=== PATIENT | male | born 1945 | race Caucasian/White ===

== ENCOUNTER 2017-05-06 16:20 | Inpatient (IN) ==
[2017-05-06] MEDS ORDERED: Aspirin 81 MG TAB.CHEW PO ONE (16:33)
[2017-05-06] MEDS ORDERED: Nitroglycerin 0.4 MG TAB.SUBL SL ONE (16:33)
--- NOTE | 2017-05-06 16:39 | Emergency Department Note ---
START Narrative - START START: Patient presents from work for evaluation of "crushing chest pressure." He states that he was working and suddenly felt a pain in the epigastrium and then a very heavy pressure in the midsternal area. He states, "it felt like something was sitting on top of me and I was dripping with sweat." He denies history of similar and states that he has never had a heart attack. He denies trouble breathing shortness of breath or dyspnea with exertion. He has had no recent illnesses. He denies nausea, vomiting, fever, chills, syncope or dizziness. The heaviness does not radiate and nothing makes it better or worse. He patient was taken from the entrance directly to bed three for evaluation. EKG and an ER chest pain order set has been ordered.
--- NOTE | 2017-05-06 16:45 | Emergency Department Note ---
Disposition Clinical Impression: Chest pain Disposition: Admitted As Inpatient Condition: Good Referrals: Rebecca Britt MD [Primary Care Provider] - Forms: ED Satisfaction Letter Time of Disposition: 17:43 Chest Pain HPI - General Chief Complaint: ED Chest Pain Stated Complaint: CP Time Seen by Provider: 05/06/17 16:33 Source: patient Limitations: no limitations Vital Signs Reviewed: Yes Nursing Notes Reviewed: Yes - History of Present Illness HPI Narrative: 72-year-old male presenting to the emergency department for acute onset of chest pain. He stated while he was sitting down at work he had midsternal chest pain which radiated into the posterior part of his left jaw. He says he felt diaphoretic and nauseous. He almost vomited but did not vomit. He says this has never happened before. He has no cardiac history. He takes one baby aspirin a day. He took this today. Patient states pain is now 0 out of 10. He states he is feeling much better. Severity scale (1-10): 0 - Related Data Home Medications Medication Instructions Recorded Confirmed Aspirin Enteric Coated [Aspirin EC] 81 mg PO DAILY 05/06/17 05/06/17 Lisinopril [Zestril] 20 mg PO DAILY 05/06/17 05/06/17 Multivitamin [Multi-Day Vitamins] 1 each PO DAILY 05/06/17 05/06/17 Pravastatin Sodium [Pravachol] 20 mg PO HS 05/06/17 05/06/17 Allergies Allergy/AdvReac Type Severity Reaction Status Date / Time No Known Allergies Allergy Verified 05/06/17 16:40 Constitutional: Denies: fever, chills, weakness Eyes: Denies: eye discharge ENT ED: Reports: as per HPI Cardiovascular: Reports: chest pain. Denies: palpitations, dyspnea on exertion Respiratory: Denies: dyspnea, wheezes, hemoptysis Gastrointestinal: Reports: nausea. Denies: vomiting Genitourinary: Reports: as per HPI Musculoskeletal: Reports: as per HPI Integumentary: Reports: as per HPI Neurological: Reports: headache. Denies: weakness, numbness Endocrine: Reports: as per HPI Hematological/Lymphatic: Reports: as per HPI Chest Pain PMH - Past Medical History Medical history: Reports: diabetes, hyperlipidemia, hypertension Psychiatric history: Reports: no psych history - Social History Smoking Status: Former smoker Alcohol use: Reports: none Drug use: Reports: none Physical Exam - General Limitations: no limitations General appearance: alert - Eye Eye exam: Present: normal appearance - Chest Chest inspection: Present: normal inspection, symmetric chest wall rise. Absent : tenderness - Respiratory Respiratory exam: Present: normal lung sounds bilaterally. Absent: respiratory distress, wheezes - Cardiovascular Cardiovascular exam: Present: regular rate, normal rhythm - Abdominal Exam Abdominal exam: Present: soft, Non-Tender. Absent: distention, guarding, rebound - Extremities Exam Extremities exam: Present: normal inspection, full ROM - Neurological Exam Neurological exam: Present: alert, oriented X3 - Psychiatric Psychiatric exam: Present: normal affect Course Course Narrative: Patient is a 72-year-old male presenting to the emergency department for chest pain. An EKG was obtained. There are irregularities on the EKG but we have no previous EKG to compare to. A chest pain workup will be started. - Reevaluation(s) Reevaluation #1: All of the lab work has come back normal. Although the troponin is 0, the history of present illness is highly indicative of a cardiac event. We have called the hospitalist on-call. Reevaluation #2: Spoke with Avelina Kelly the nurse practitioner on for hospitalist. She agrees to accept the patient. Time: 17:41 Vital Signs Temperature 98.9 F 05/06/17 16:35 Pulse Rate 86 05/06/17 16:35 Respiratory Rate 16 05/06/17 16:35 Blood Pressure 125/97 05/06/17 16:35 O2 Sat by Pulse Oximetry 99 05/06/17 16:35 Temperature 98.9 F 05/06/17 16:35 Pulse Rate 86 05/06/17 16:35 Respiratory Rate 16 05/06/17 16:35 Blood Pressure 125/97 05/06/17 16:35 O2 Sat by Pulse Oximetry 99 05/06/17 16:41 Oxygen Delivery Oxygen Delivery Room Air Chest Pain - Medical Records Medical records reviewed: Yes I reviewed the patient's medical records. - Lab Data Lab results reviewed: Yes I reviewed the patient's lab results. Result diagrams: 05/06/17 16:51 05/06/17 16:51 Lab Results 05/06/17 05/06/17 05/06/17 Range/Units 16:51 16:51 16:51 WBC 9.9 (4.3-11.1) K/mcL RBC 4.65 (4.19-5.50) M/mcL Hgb 14.4 (12.9-16.9) g/dL Hct 42.6 (37.5-50.1) % MCV 91.6 (83.0-100.0) fL MCH 31.0 (28.0-33.3) pg MCHC 33.8 (31.6-35.5) g/dL RDW 12.5 (11.5-14.5) % Plt Count 178 (140-400) K/mcL MPV 10.2 (9.4-12.4) fL Immature Gran % 0.1 (0-4) % Seg Neutrophils % 80.2 % Lymphocytes % 10.2 % Monocytes % 7.4 % Eosinophils % 1.7 % Basophils % 0.4 % Neutrophils # 7.9 (1.6-8.9) K/mcL Lymphocytes # 1.0 (0.6-4.6) K/mcL Monocytes # 0.7 (0.0-1.3) K/mcL Eosinophils # 0.2 (0.0-0.6) K/mcL Basophils # 0.0 (0.0-0.2) K/mcL PT 12.6 H (9.4-12.1) Seconds INR 1.2 APTT 31.2 (26.0-36.0) Seconds Sodium (136-145) mEq/L Potassium (3.5-4.5) mEq/L Chloride (98-109) mEq/L Carbon Dioxide (19-29) mEq/L BUN (8-26) mg/dL Creatinine (0.72-1.25) mg/dL Est GFR ( Amer) (> 60) Est GFR (Non-Af Amer) (> 60) BUN/Creatinine Ratio (6-26) Glucose (70-99) mg/dL Calculated Osmolality (280-300) Calcium (8.6-10.8) mg/dL Troponin I (0-0.03) ng/mL B-Natriuretic Peptide 158 H (0-100) pg/mL 05/06/17 05/06/17 Range/Units 16:51 16:51 WBC (4.3-11.1) K/mcL RBC (4.19-5.50) M/mcL Hgb (12.9-16.9) g/dL Hct (37.5-50.1) % MCV (83.0-100.0) fL MCH (28.0-33.3) pg MCHC (31.6-35.5) g/dL RDW (11.5-14.5) % Plt Count (140-400) K/mcL MPV (9.4-12.4) fL Immature Gran % (0-4) % Seg Neutrophils % % Lymphocytes % % Monocytes % % Eosinophils % % Basophils % % Neutrophils # (1.6-8.9) K/mcL Lymphocytes # (0.6-4.6) K/mcL Monocytes # (0.0-1.3) K/mcL Eosinophils # (0.0-0.6) K/mcL Basophils # (0.0-0.2) K/mcL PT (9.4-12.1) Seconds INR APTT (26.0-36.0) Seconds Sodium 142 (136-145) mEq/L Potassium 3.7 (3.5-4.5) mEq/L Chloride 109 (98-109) mEq/L Carbon Dioxide 25 (19-29) mEq/L BUN 19 (8-26) mg/dL Creatinine 0.88 (0.72-1.25) mg/dL Est GFR ( Amer) > 60 (> 60) Est GFR (Non-Af Amer) > 60 (> 60) BUN/Creatinine Ratio 22 (6-26) Glucose 106 H (70-99) mg/dL Calculated Osmolality 297 (280-300) Calcium 9.0 (8.6-10.8) mg/dL Troponin I 0.01 (0-0.03) ng/mL B-Natriuretic Peptide (0-100) pg/mL - EKG Data EKG results narrative: Rate of 91 bpm. Sinus rhythm. Normal axis. DE interval of 202 ms, QRS of 131 ms, QTC of 419 ms. There are nonspecific T-wave changes in the lateral leads. Attestation Statement - Attestation Attestation: I examined this patient and my medical decision-making was reviewed with the BEVELING MACHINE OPERATOR/PA/Advanced Practice Nurse/Resident Physician. I agree with the documented findings, disposition and treatment plan as described except to the extent set forth below. Patient will need to be admitted for rule out ACS.
[2017-05-06 17:00] LABS: Basophils % 0.4 %; Eosinophils # 0.2 K/mcL (0.0-0.6); Eosinophils % 1.7 %; Hematocrit 42.6 % (37.5-50.1); Hemoglobin 14.4 g/dL (12.9-16.9); Immature Granulocytes % 0.1 % (0-4); Lymphocytes % 10.2 %; Mean Corpuscular HGB Conc 33.8 g/dL (31.6-35.5); Mean Corpuscular Volume 91.6 fL (83.0-100.0); Mean Platelet Volume 10.2 fL (9.4-12.4); Monocytes # 0.7 K/mcL (0.0-1.3); Monocytes % 7.4 %; Neutrophils # 7.9 K/mcL (1.6-8.9); Platelet Count 178 K/mcL (140-400); Red Blood Count 4.65 M/mcL (4.19-5.50); Red Cell Distribution Width 12.5 % (11.5-14.5); Segmented Neutrophils % 80.2 %
[2017-05-06 17:11] LABS: BUN/Creatinine Ratio 22 (6-26); Blood Urea Nitrogen 19 mg/dL (8-26); Carbon Dioxide 25 mEq/L (19-29); Chloride 109 mEq/L (98-109); Glucose 106 mg/dL (70-99); Osmolality,Calculated 297 (280-300); Potassium 3.7 mEq/L (3.5-4.5); Sodium 142 mEq/L (136-145); eGFR For African Americans > 60 (> 60); eGFR For Non-African Americans > 60 (> 60)
[2017-05-06 17:12] LABS: INR 1.2; Prothrombin Time 12.6 Seconds (9.4-12.1)
[2017-05-06 17:15] LABS: Activated Partial Thrombo Time 31.2 Seconds (26.0-36.0)
[2017-05-06] MEDS ORDERED: Naloxone 0.4 MG/ML INJ IVP PRN (20:07)
[2017-05-06] MEDS ORDERED: Acetaminophen 325 MG TABLET PO PRN (20:07)
[2017-05-06] MEDS ORDERED: *HR* Morphine 2 MG/ML SYRINGE IVP PRN (20:07)
[2017-05-06] MEDS ORDERED: Ondansetron 4 MG/2 ML VIAL IVP PRN (20:07)
--- NOTE | 2017-05-06 20:16 | Internal Med History&Physical ---
Date of Encounter: 05/06/17 Time of Encounter: 19:45 Assessment and Plan (1) Chest pain Current visit: Yes Status: Acute 1. Will cycle troponins and EKG's. 2. Plan for stress test with nuclear imaging tomorrow if above negative. 3. Will use IV Morphine and/or nitrates as needed for active chest pain. Qualifiers: Chest pain type: precordial pain Qualified Code(s): R07.2 - Precordial pain (2) Hypertension Current visit: Yes Status: Chronic 1. Monitor BP and adjust meds as necessary. 2. Continue home meds as appropriate. Qualifiers: Hypertension type: essential hypertension Qualified Code(s): I10 - Essential (primary) hypertension (3) Hyperlipidemia Current visit: Yes Status: Chronic 1. Check lipid profile and continue home meds. Qualifiers: Hyperlipidemia type: unspecified Qualified Code(s): E78.5 - Hyperlipidemia , unspecified (4) DVT prophylaxis Current visit: Yes Status: Acute 1. Heparin SQ. Internal Medicine - H&P: HPI Chief complaint: chest pain Admitted From: Emergency Dept History of present illness: Mr. Stark is a 72 year old male who presents to the ER [facility] with complaints of acute onset of epigastric and substernal chest pain with sudden onset while walking at work. He sat down at his desk and the pain persisted for several minutes. It was associated with some shortness of breath, diaphoresis, and felt like "an elephant sitting on my chest". He therefore came to the ER where he was seen and evaluated. He received an aspirin and some sublingual nitroglycerin with relief of symptoms. He therefore was admitted to hospitalist service for evaluation. Upon my assessment of the patient, he is chest pain-free now. He has had some atypical cramping pain in his left abdomen radiating to his chest. This all started today as well. The chest pain was rather concerning, however. He denies any heartburn, nausea, vomiting, diarrhea, constipation, or change in bowel habits. He is an active individual and has never had chest pain before. Cardiac risk factors include hypertension, hyperlipidemia, obesity, and family history. Past Med Surg Social Fam HX - Past Medical History Attestation: Yes The following information was validated with the patient. Source: patient, old records reviewed Medical history: hyperlipidemia, hypertension Psychiatric history: no psych history - Past Surgical History Surgical History: cholecystectomy, orthopedic, other - Social History Smoking Status: Former smoker Smokeless Tobacco Status: No Alcohol use: none Drug use: none Occupational status: employed Current living situation: Home, With Family Activity Level: Independent ambulation, Very active Recent Out of Country Travel Within the Last 8 Weeks: No - Family History Mother Living Status: Hx Family Cardiac Disorders: Yes Father Living Status: Hx Family Cardiac Disorders: No Internal Medicine - H&P: Meds Aspirin Enteric Coated [Aspirin EC] 81 mg PO DAILY 05/06/17 [History] Lisinopril [Zestril] 20 mg PO DAILY 05/06/17 [History] Multivitamin [Multi-Day Vitamins] 1 each PO DAILY 05/06/17 [History] Pravastatin Sodium [Pravachol] 20 mg PO HS 05/06/17 [History] Allergies No Known Allergies Allergy (Verified 05/06/17 16:40) - Constitutional Constitutional: no chills, no fever(s), no night sweats - EENT Eyes: no blurry vision, no change in vision Ears: no ear pain, no tinnitus Nose, mouth and throat: no nasal congestion, no sinus pain, no sore throat - Cardiovascular Cardiovascular ROS IM: chest pain, diaphoresis, dyspnea, dyspnea on exertion, no edema, no lightheadedness, no palpitations - Respiratory Respiratory: no cough, no hemoptysis, no wheezing, no chest congestion - Gastrointestinal Gastrointestinal: abdominal pain, cramping, no diarrhea, no dyspepsia, no heartburn, no hematemesis, no hematochezia, no melena, no nausea, no vomiting - Genitourinary Genitourinary ROS male: no dysuria, no flank pain, no hematuria - Musculoskeletal Musculoskeletal ROS IM: no arthralgias, no back pain - Integumentary Integumentary IM: no rash, no skin ulcer - Neurological Neurological ROS: no dizziness, no focal weakness, no frequent falls - Psychiatric Psychiatric: no anxiety, no depression - Endocrine Endocrine IM: no cold intolerance, no heat intolerance, no polydipsia, no polyuria - Hematologic/Lymphatic Hematologic/Lymphatic: no easy bruising, no lymphadenopathy - Allergic/Immunologic Allergic/Immunologic: no GI upset with certain foods - Constitutional Vitals: Temp Pulse Resp BP Pulse Ox 98.2 F 80 16 177/84 98 05/06/17 19:34 05/06/17 19:34 05/06/17 19:34 05/06/17 19:34 05/06/17 19:34 General appearance: Present: cooperative, A&O X 3, pleasant, no acute distress - Head Head exam: Present: atraumatic, normal inspection - Eye Eye exam: Present: EOMI, normal appearance, PERRL. Absent: scleral icterus Pupils: Present: normal accommodation - ENT ENT exam: Present: mucous membranes moist, normal exam - Neck Neck exam general surgery: Present: full ROM, normal inspection, supple. Absent : tenderness - Expanded Neck Exam Neck exam: Absent: carotid bruit - Respiratory Respiratory exam: Present: CTAB. Absent: chest wall tenderness, rales, rhonchi , wheezes - Cardiovascular Cardiovascular exam: Present: RRR, +S1, +S2. Absent: diastolic murmur, systolic murmur - GI/Abdominal GI/Abdominal exam: Present: normal bowel sounds, soft, no peritoneal signs. Absent: guarding, hepatomegaly, mass, rebound, splenomegaly, tenderness - Extremities Exam Extremities exam: Present: full ROM, warm. Absent: calf tenderness, joint swelling, pedal edema, tenderness - Back Exam Back exam: Present: normal inspection. Absent: CVA tenderness (L), CVA tenderness (R) - Neurological Exam Neurological exam: Present: alert, CN II-XII intact, oriented X3, no focal deficits - Psychiatric Psychiatric exam: Present: normal affect, normal mood - Skin Skin exam: Present: dry, warm. Absent: rash Internal Med - H&P Results - Labs CBC & Chem 7: 05/06/17 16:51 05/06/17 16:51 - EKG Data -: EKG Interpreted by Myself EKG shows normal: sinus rhythm - EKG Data Prior EKG available for review: no EKG comments: 05/06/17 20:25 NSR; RBBB; no acute changes - Diagnostic Studies Chest x-ray Status: image reviewed by me (negative)
[2017-05-06] MEDS: *HR* Heparin 5,000 UNIT/ML VIAL SQ SCH (21:15)
[2017-05-07 05:12] LABS: Basophils % 0.5 %; Eosinophils # 0.1 K/mcL (0.0-0.6); Eosinophils % 1.5 %; Hematocrit 44.6 % (37.5-50.1); Hemoglobin 14.8 g/dL (12.9-16.9); Immature Granulocytes % 0.3 % (0-4); Lymphocytes # 0.8 K/mcL (0.6-4.6); Lymphocytes % 8.5 %; Mean Corpuscular HGB Conc 33.2 g/dL (31.6-35.5); Mean Corpuscular Hemoglobin 30.8 pg (28.0-33.3); Mean Corpuscular Volume 92.7 fL (83.0-100.0); Mean Platelet Volume 10.4 fL (9.4-12.4); Monocytes # 0.6 K/mcL (0.0-1.3); Monocytes % 6.8 %; Neutrophils # 7.2 K/mcL (1.6-8.9); Platelet Count 190 K/mcL (140-400); Red Blood Count 4.81 M/mcL (4.19-5.50); Red Cell Distribution Width 12.8 % (11.5-14.5); Segmented Neutrophils % 82.4 %
[2017-05-07 05:32] LABS: Alanine Aminotransferase 19 Units/L (0-55); Albumin 3.6 g/dL (3.5-5.0); Albumin/Globulin Ratio 1.2 (1.1-2.2); Alkaline Phosphatase 85 Units/L (38-126); Aspartate Amino Transferase 22 Units/L (5-34); BUN/Creatinine Ratio 21 (6-26); Bilirubin,Total 0.7 mg/dL (0.2-1.2); Blood Urea Nitrogen 17 mg/dL (8-26); Calcium 8.7 mg/dL (8.6-10.8); Carbon Dioxide 28 mEq/L (19-29); Chloride 108 mEq/L (98-109); Chol/HDL Ratio 4.6 (0-4.9); Cholesterol 129 mg/dL (< 200); Globulin 2.9 g/dL (2.4-3.5); Glucose 107 mg/dL (70-99); HDL Cholesterol 28 mg/dL (40-59); LDL Cholesterol,Calculated 75 mg/dL (0-99); Magnesium 1.9 mg/dL (1.6-2.6); Osmolality,Calculated 292 (280-300); Sodium 140 mEq/L (136-145); Total Protein 6.5 g/dL (6.0-8.3); Triglycerides 128 mg/dL (< 150); eGFR For African Americans > 60 (> 60); eGFR For Non-African Americans > 60 (> 60)
[2017-05-07] MEDS: *HR* Heparin 5,000 UNIT/ML VIAL SQ SCH ×2 (06:06→17:04)
[2017-05-07] MEDS ORDERED: Regadenoson 0.4 MG/5 ML SYRINGE IVP ONE (07:33)
[2017-05-07] MEDS ORDERED: Lisinopril 20 MG TABLET PO SCH (09:00)
[2017-05-07] MEDS: Aspirin Enteric Coated 81 MG Tablet PO SCH (09:05)
[2017-05-07] MEDS: Multivit/Ca/Min/Fe/FA 1 TAB TABLET PO SCH (09:05)
--- NOTE | 2017-05-07 11:26 | Nuclear Medicine Stress Report ---
Regadenoson Nuclear Stress Name: Abhishek Stark Date of Study: 05/07/2017 Date: 1945 Ht: 69.0 in Medical Record#: [id number] Age: 72 Wt: 245.0 lb Gender: Male Order #: [id number] Location: [facility] Room: [facility] Supervising Provider: China Powell CNP Reading Physician: Brandon Ramírez DO, FACC, FASEMY Ordering Physician: Carmina Lawson CNP Primary Care Physician: Rebecca Britt MD Stress Technologist: Ivan Johnson [employer] Scale Tester: Herlinda Shore Indications: Chest Pain Impression: Pharmacologic stress ECG is negative for ischemia at level of heart rate achieved. Gated EF = 69%. Perfusion imaging was negative for ischemia or infarct. History: Hypertension Hypercholesteremia Stress Test Summary: Stress Test Type: Pharmacologic Regadenoson 0.4mg/5ml given IV Baseline Information: Initial Heart Rate: 81 Blood Pressure: 136/68 Stress Information: Test Terminated Due to (primary): As per protocol Maximum Blood Pressure: 128/64 Maximum Heart Rate: 96 Percent Maximum Heart Rate Achieved: 65 Double Product: [id number] METS Reached: 1 Symptoms: No chest symptoms Nuclear Summary: SPECT myocardial perfusion imaging using Tc99m Sestamibi given intravenously was performed at rest and following cardiac stress testing. The resting images were obtained following initial dose of 11.5 mCi. Following stress an additional dose of 30.4 mCi was given at peak exercise or 30 seconds post regadenoson infusion. Medication Given: Time Medication Dose Units Route Findings: Stress Note * Resting ECG demonstrated normal sinus rhythm. * No baseline arrhythmias were noted. * Pharmacologic stress ECG is negative for ischemia at level of heart rate achieved. * No arrhythmias were noted during stress. * Patient had no chest pain during stress. Hemodynamic responses * Normal hemodynamic responses to pharmacologic stress. Study Quality * Study quality is good. Gated EF % * Gated EF = 69%. Left Ventricle * The left ventricle is not dilated. * LVEDV = 100 mL. NORMALS * Normal wall motion. * Normal Segmental Perfusion in rest. * Normal segmental perfusion in stress. TID * No evidence of transient ischemic dilatation. TID ratio * TID ratio = 1.11. Lung Uptake * There is no evidence of increase lung uptake. Updated by Brandon Ramírez DO, RAMYA, ADAN, SANJU on 05/07/2017 11:19:42 AM electronically signed on 05/07/2017 11:20:03 AM with status of Final
--- NOTE | 2017-05-07 17:18 | Electrocardiograph Report ---
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
--- NOTE | 2017-05-07 18:06 | Internal Med Progress Note ---
Date of Encounter: 05/07/17 Time of Encounter: 16:30 - Assessment and plan (1) Chest pain Current Visit: Yes Status: Ruled-out Assessment and plan: In further discussion with the patient, patient never had overt chest pain. He did have epigastric pain and acute coronary syndrome was ruled out with a negative chest x-ray, negative troponins, and a negative stress test. Ejection fraction 69%. Low suspicion for acute cardiac etiology. We will investigate abdominal pathway. ITS Impressions Chest X-Ray 05/06/17 16:33 IMPRESSION: No evidence of acute cardiopulmonary disease. D/ / Lonnie Mac MD / Lonnie Mac MD Interpreting Provider: Lonnie Mac MD Regadenosen nuclear stress test impression: Pharmacologic stress ECG is negative for ischemia at level heart rate achieved. Gait ejection fraction equals 69%. Perfusion imaging was negative for ischemia or infarct. Qualifiers: Chest pain type: precordial pain Qualified Code(s): R07.2 - Precordial pain (2) Abdominal pain Current Visit: Yes Status: Acute Assessment and plan: Patient stating he has been having severe abdominal pain that has gotten more frequent and more severe over the past month but has really gotten bad over the past couple days. He endorses severe epigastric pain that feels as if somebody is stabbing him. He also endorses severe shooting pains across his stomach. He denies any relationship to food. He denies constipation or diarrhea. LFTs and bilirubin normal. He is status post cholecystectomy. Unclear causation at this point, will obtain abdominal imaging and investigate further. (3) Hypertension Current Visit: Yes Status: Chronic Assessment and plan: Uncontrolled. Could be due to the fact that the patient is still having abdominal pain. At home, he is on lisinopril 20 mg daily. Renal functioning is normal, will increase dose and monitor. Heart rate stable, Lopressor IV as needed Qualifiers: Hypertension type: essential hypertension Qualified Code(s): I10 - Essential (primary) hypertension (4) Hyperlipidemia Current Visit: Yes Status: Chronic Assessment and plan: The patient unremarkable but LDL is above 70, slightly, he is on a statin, continue. Still recommend low-cholesterol diet. Qualifiers: Hyperlipidemia type: unspecified Qualified Code(s): E78.5 - Hyperlipidemia , unspecified (5) DVT prophylaxis Current Visit: Yes Status: Acute Assessment and plan: Subcutaneous heparin - Subjective Interval history: Patient seen and examined. On examination, patient alert and oriented 3. He denies chest pain or shortness of breath. He continues to endorse intermittent severe epigastric abdominal pain as well as shooting pains across his abdomen that he states have occurred over the past year but if gotten more frequent and more severe over the past couple days. He is very concerned about his abdominal pain. - Constitutional Vitals: Temp Pulse Resp BP Pulse Ox 98.7 F 89 15 177/84 96 05/07/17 15:30 05/07/17 15:30 05/07/17 15:30 05/07/17 15:30 05/07/17 15:30 General appearance: Present: cooperative, A&O X 3, pleasant, no acute distress, answers questions appropriately - Head Head exam: Present: atraumatic, normocephalic - Eye Eye exam: Present: PERRL, conjuntiva pink, sclera anicteric Pupils: Present: PERRL - Neck Neck exam general surgery: Present: supple, trachea midline. Absent: lymphadenopathy - Respiratory Respiratory exam: Present: CTAB. Absent: accessory muscle use, rales, respiratory distress, rhonchi, wheezes - Cardiovascular Cardiovascular exam: Present: RRR, +S1, +S2. Absent: diastolic murmur, gallop, rubs, systolic murmur - GI/Abdominal GI/Abdominal exam: Present: distended, normal bowel sounds, soft, tenderness ( epitgastric and diffuse), no peritoneal signs - Extremities Exam Extremities exam: Present: warm, radial pulses palpable and symetrical. Absent : calf tenderness, cyanotic, pedal edema - Neurological Exam Neurological exam: Present: alert, CN II-XII intact, normal gait, oriented X3, no focal deficits, strengths equal and symetr throughout. Absent: pronater drift, facial droop, speech deficit - Skin Skin exam: Present: dry, intact, pallor, warm Internal Medicine: Result - Labs CBC & Chem 7: 05/07/17 04:52 05/07/17 04:52 Labs: Short CBC 05/07/17 Range/Units 04:52 WBC 8.8 (4.3-11.1) K/mcL Hgb 14.8 (12.9-16.9) g/dL Hct 44.6 (37.5-50.1) % Plt Count 190 (140-400) K/mcL Neutrophils # 7.2 (1.6-8.9) K/mcL BMP 05/07/17 04:52 Sodium 140 Potassium 4.0 Chloride 108 Carbon Dioxide 28 BUN 17 Creatinine 0.82 Glucose 107 H Calcium 8.7 Cardiac Enzymes 05/06/17 05/07/17 Range/Units 22:35 04:52 Troponin I 0.00 0.00 (0-0.03) ng/mL Liver Function 05/07/17 Range/Units 04:52 Total Bilirubin 0.7 (0.2-1.2) mg/dL AST 22 (5-34) Units/L ALT 19 (0-55) Units/L Alkaline Phosphatase 85 (38-126) Units/L Albumin 3.6 (3.5-5.0) g/dL - ABG Interpretation ABG results: PT/INR, D-dimer PT 12.6 Seconds (9.4-12.1) H 05/06/17 16:51 Consult Discharge Plan - Plan Referrals: Rebecca Britt MD [Primary Care Provider] - 05/11/17 1:30 pm
[2017-05-07] MEDS ORDERED: *HR* HYDROcodone/Acet 5/325 mg TABLET PO PRN (18:07)
[2017-05-07] MEDS ORDERED: Lisinopril 20 MG TABLET PO ONE (18:07)
[2017-05-07] MEDS ORDERED: *HR* Morphine 2 MG/ML SYRINGE IVP PRN (18:15)
[2017-05-07] MEDS ORDERED: Ondansetron 4 MG/2 ML VIAL IVP PRN (18:15)
[2017-05-08] MEDS: *HR* Heparin 5,000 UNIT/ML VIAL SQ SCH ×2 (05:46→18:02)
[2017-05-08 06:47] LABS: Amylase 22 Units/L (25-125); BUN/Creatinine Ratio 18 (6-26); Blood Urea Nitrogen 14 mg/dL (8-26); Calcium 8.9 mg/dL (8.6-10.8); Carbon Dioxide 26 mEq/L (19-29); Chloride 106 mEq/L (98-109); Glucose 114 mg/dL (70-99); Lipase 16 Units/L (8-78); Osmolality,Calculated 287 (280-300); Potassium 3.9 mEq/L (3.5-4.5); Sodium 138 mEq/L (136-145); eGFR For African Americans > 60 (> 60); eGFR For Non-African Americans > 60 (> 60)
[2017-05-08] MEDS: Aspirin Enteric Coated 81 MG Tablet PO SCH (09:13)
[2017-05-08] MEDS: Lisinopril 20 MG TABLET PO SCH (09:13)
[2017-05-08] MEDS: Multivit/Ca/Min/Fe/FA 1 TAB TABLET PO SCH (09:13)
[2017-05-08 11:10] LABS: Basophils % 0.3 %; Eosinophils # 0.1 K/mcL (0.0-0.6); Hematocrit 44.8 % (37.5-50.1); Hemoglobin 15.2 g/dL (12.9-16.9); Immature Granulocytes % 0.3 % (0-4); Lymphocytes # 1.1 K/mcL (0.6-4.6); Lymphocytes % 11.7 %; Mean Corpuscular HGB Conc 33.9 g/dL (31.6-35.5); Mean Corpuscular Hemoglobin 31.6 pg (28.0-33.3); Mean Corpuscular Volume 93.1 fL (83.0-100.0); Mean Platelet Volume 10.6 fL (9.4-12.4); Monocytes # 1.1 K/mcL (0.0-1.3); Monocytes % 11.8 %; Neutrophils # 7.1 K/mcL (1.6-8.9); Platelet Count 170 K/mcL (140-400); Red Blood Count 4.81 M/mcL (4.19-5.50); Segmented Neutrophils % 74.9 %
[2017-05-08] MEDS: 0.9 % Sodium Chloride 1,000 ML IVC SCH ×2 (12:10→21:56)
[2017-05-08] MEDS: MetroNIDAZOLE 500 MG/100 ML 500 MG/100 ML BAG IVPB SCH ×3 (12:10→21:56)
--- NOTE | 2017-05-08 13:41 | Internal Med Progress Note ---
Date of Encounter: 05/09/17 Time of Encounter: 12:30 - Assessment and plan (1) Chest pain Current Visit: Yes Status: Ruled-out Assessment and plan: In further discussion with the patient, patient never had overt chest pain. He did have epigastric pain and acute coronary syndrome was ruled out with a negative chest x-ray, negative troponins, and a negative stress test. Ejection fraction 69%. Low suspicion for acute cardiac etiology. Abdominal pathway investigated and patient with suspected mesenteric enteritis. ITS Impressions Chest X-Ray 05/06/17 16:33 IMPRESSION: No evidence of acute cardiopulmonary disease. D/ / Lonnie Mac MD / Lonnie Mac MD Interpreting Provider: Lonnie Mac MD Regadenosen nuclear stress test impression: Pharmacologic stress ECG is negative for ischemia at level heart rate achieved. Gait ejection fraction equals 69%. Perfusion imaging was negative for ischemia or infarct. Qualifiers: Chest pain type: precordial pain Qualified Code(s): R07.2 - Precordial pain (2) Abdominal pain Current Visit: Yes Status: Acute Assessment and plan: Abdominal CT revealing mesenteric edema with suspected mesenteric enteritis. Possible SBO as well. Patient stating his pain is controlled today and states that he just had a bowel movement that he stated was normal. He states that over the past month, he has been having sharp, shooting pains across his abdomen and he states these pains were intolerable in the days leading up to his presentation. On examination, abdomen is distended and firm but with + bowel sounds in all four quadrants. He is diffusely tender to palpation. He denies any changes to his bowel movements over the past month. No recent illnesses. He has been made NPO, an NG tube has been placed and IVF and Cipro and Flagyl have been initiated. Concern for SBO. Will recheck acute abdominal series in the am. Possible small bowel follow through tomorrow as well pending clinical outcomes. Unclear causation at this time. No leukocytosis or signs of infection. We will check stool for Hemoccult. LDH normal, lactic acid normal. Amylase and lipase unremarkable. He does not have any signs of ischemia at this time, we will monitor closely. ITS Impressions Abdomen/Pelvis CT 05/07/17 18:13 IMPRESSION: Fluid distention of multiple small bowel loops throughout the abdomen with increased vascularity and associated small amount of fluid and mesenteric edema. Findings could represent enteritis. Small bowel obstruction cannot be excluded. D/ / Stephanie Newton Cha, MD / Stephanie Newton Cha, MD Interpreting Provider: Stephanie Newton Cha, MD Qualifiers: Abdominal location: generalized Qualified Code(s): R10.84 - Generalized abdominal pain (3) Enteritis Current Visit: Yes Status: Suspected (4) Hypertension Current Visit: Yes Status: Chronic Assessment and plan: Uncontrolled even with increase in lisinopril and now that his pain is controlled. Amlodipine added to his regimen; will trend. Heart rate stable, Lopressor IV as needed Qualifiers: Hypertension type: essential hypertension Qualified Code(s): I10 - Essential (primary) hypertension (5) Hyperlipidemia Current Visit: Yes Status: Chronic Assessment and plan: The patient unremarkable but LDL is above 70, slightly, he is on a statin, continue. Still recommend low-cholesterol diet. Qualifiers: Hyperlipidemia type: unspecified Qualified Code(s): E78.5 - Hyperlipidemia , unspecified (6) DVT prophylaxis Current Visit: Yes Status: Acute Assessment and plan: Subcutaneous heparin - Subjective Interval history: Patient seen and examined. On examination, patient alert and oriented 3. He denies chest pain or shortness of breath. He states that he just had a bowel movement and stated it was "normal." He states he is hungry but denies other concerns. - Constitutional Vitals: Temp Pulse Resp BP Pulse Ox 98.8 F 79 14 181/92 96 05/08/17 11:10 05/08/17 11:10 05/08/17 11:10 05/08/17 11:10 05/08/17 11:10 General appearance: Present: cooperative, A&O X 3, pleasant, no acute distress, answers questions appropriately - Head Head exam: Present: atraumatic, normocephalic - Eye Eye exam: Present: PERRL, conjuntiva pink, sclera anicteric Pupils: Present: PERRL - Neck Neck exam general surgery: Present: supple, trachea midline. Absent: lymphadenopathy - Respiratory Respiratory exam: Present: CTAB. Absent: accessory muscle use, rales, respiratory distress, rhonchi, wheezes - Cardiovascular Cardiovascular exam: Present: RRR, +S1, +S2. Absent: diastolic murmur, gallop, rubs, systolic murmur - GI/Abdominal GI/Abdominal exam: Present: distended, hyperactive bowel sounds, tenderness ( diffuse; mild), no peritoneal signs - Extremities Exam Extremities exam: Present: warm, radial pulses palpable and symetrical. Absent : calf tenderness, cyanotic, pedal edema - Neurological Exam Neurological exam: Present: alert, CN II-XII intact, normal gait, oriented X3, no focal deficits, strengths equal and symetr throughout. Absent: pronater drift, facial droop, speech deficit - Skin Skin exam: Present: dry, intact, normal color, warm Internal Medicine: Result - Labs CBC & Chem 7: 05/08/17 11:01 05/08/17 05:21 Labs: Short CBC 05/08/17 Range/Units 11:01 WBC 9.5 (4.3-11.1) K/mcL Hgb 15.2 (12.9-16.9) g/dL Hct 44.8 (37.5-50.1) % Plt Count 170 (140-400) K/mcL Neutrophils # 7.1 (1.6-8.9) K/mcL BMP 05/08/17 05:21 Sodium 138 Potassium 3.9 Chloride 106 Carbon Dioxide 26 BUN 14 Creatinine 0.77 Glucose 114 H Calcium 8.9 - ABG Interpretation ABG results: PT/INR, D-dimer PT 12.6 Seconds (9.4-12.1) H 05/06/17 16:51 - Impressions Impressions Abdomen/Pelvis CT 05/07/17 18:13 IMPRESSION: Fluid distention of multiple small bowel loops throughout the abdomen with increased vascularity and associated small amount of fluid and mesenteric edema. Findings could represent enteritis. Small bowel obstruction cannot be excluded. D/ / Stephanie Newton Cha, MD / Stephanie Newton Cha, MD Interpreting Provider: Stephanie Newton Cha, MD Consult Discharge Plan - Plan Referrals: Rebecca Britt MD [Primary Care Provider] - 05/11/17 1:30 pm
[2017-05-08] MEDS: amLODIPine 5 MG TABLET PO SCH (15:33)
[2017-05-09] MEDS: 0.9 % Sodium Chloride 1,000 ML IVC SCH ×2 (04:22→17:30)
[2017-05-09] MEDS: MetroNIDAZOLE 500 MG/100 ML 500 MG/100 ML BAG IVPB SCH ×4 (05:22→22:56)
[2017-05-09] MEDS: *HR* Heparin 5,000 UNIT/ML VIAL SQ SCH ×2 (05:22→18:28)
[2017-05-09 05:53] LABS: Thyroid Stimulating Hormone 2.292 mcIU/mL (0.350-4.840)
[2017-05-09] MEDS: Aspirin Enteric Coated 81 MG Tablet PO SCH (07:38)
[2017-05-09] MEDS: Multivit/Ca/Min/Fe/FA 1 TAB TABLET PO SCH (07:38)
[2017-05-09] MEDS: Lisinopril 20 MG TABLET PO SCH (07:38)
[2017-05-09] MEDS: amLODIPine 5 MG TABLET PO SCH (07:39)
[2017-05-09] MEDS ORDERED: Chloraseptic Spray 177 ML BOTTLE MM PRN (15:13)
--- NOTE | 2017-05-09 16:18 | Internal Med Progress Note ---
Date of Encounter: 05/09/17 Time of Encounter: 14:30 - Assessment and plan (1) Abdominal pain Current Visit: Yes Status: Acute Assessment and plan: Abdominal CT revealing mesenteric edema with suspected mesenteric enteritis with a possible SBO. Yesterday, he was made NPO and started on Cipro and Flagyl. He had a sizeable bowel movement yesterday and his abdomen was less distended, softer, and he then denied abdominal pain. NG tube was held at that time and he was observed overnight. Unfortunately, repeat imaging this am revealing continued small bowel distention with suspected SBO to the mid abdomen. NG tube placed today. He continues to deny pain. Unclear causation at this time- he has had shooting pains across his abdomen for a month, but progressively worsened in the 2 days prior to presentation. No leukocytosis or signs of infection. We will check stool for Hemoccult. LDH normal, lactic acid normal. Amylase and lipase unremarkable. He does not have any signs of ischemic bowel at this time, we will monitor closely. Will continue to treat conservatively- repeat AAS in the am- if abnormal, will consider surgery consultation. Possible small bowel follow through testing as well. ITS Impressions Abdomen/Pelvis CT 05/07/17 18:13 IMPRESSION: Fluid distention of multiple small bowel loops throughout the abdomen with increased vascularity and associated small amount of fluid and mesenteric edema. Findings could represent enteritis. Small bowel obstruction cannot be excluded. D/ / Stephanie Newton Cha, MD / Stephanie Newton Cha, MD Interpreting Provider: Stephanie Newton Cha, MD Chest/Abdomen X-ray 05/09/17 06:00 IMPRESSION: Persistent small bowel distention within the mid abdomen concerning for a partial small bowel obstruction. No acute cardiopulmonary process identified. D/ / 05/09/2017 08:38:26 Beto Flores MD / otis Interpreting Provider: Beto Flores MD Qualifiers: Abdominal location: generalized Qualified Code(s): R10.84 - Generalized abdominal pain (2) SBO (small bowel obstruction) Current Visit: Yes Status: Acute (3) Chest pain Current Visit: Yes Status: Ruled-out Assessment and plan: In further discussion with the patient, patient never had overt chest pain. He did have epigastric pain and acute coronary syndrome was ruled out with a negative chest x-ray, negative troponins, and a negative stress test. Ejection fraction 69%. Low suspicion for acute cardiac etiology. Abdominal pathway investigated and patient with suspected mesenteric enteritis. ITS Impressions Chest X-Ray 05/06/17 16:33 IMPRESSION: No evidence of acute cardiopulmonary disease. D/ / Lonnie Mac MD / Lonnie Mac MD Interpreting Provider: Lonnie Mac MD Regadenosen nuclear stress test impression: Pharmacologic stress ECG is negative for ischemia at level heart rate achieved. Gait ejection fraction equals 69%. Perfusion imaging was negative for ischemia or infarct. Qualifiers: Chest pain type: precordial pain Qualified Code(s): R07.2 - Precordial pain (4) Enteritis Current Visit: Yes Status: Suspected (5) Hypertension Current Visit: Yes Status: Chronic Assessment and plan: Uncontrolled upon presentation. His lisinopril was increased but he remained hypertensive even after his pain was controlled. Amlodipine was also added to his regimen and his blood pressure is better controlled today, we will continue to trend. Heart rate stable, Lopressor IV as needed Qualifiers: Hypertension type: essential hypertension Qualified Code(s): I10 - Essential (primary) hypertension (6) Hyperlipidemia Current Visit: Yes Status: Chronic Assessment and plan: The patient unremarkable but LDL is above 70, slightly, he is on a statin, continue. Still recommend low-cholesterol diet. Qualifiers: Hyperlipidemia type: unspecified Qualified Code(s): E78.5 - Hyperlipidemia , unspecified (7) DVT prophylaxis Current Visit: Yes Status: Acute Assessment and plan: Subcutaneous heparin - Subjective Interval history: Patient seen and examined. On examination, patient alert and oriented 3. He denies chest pain or shortness of breath. He currently denies abdominal pain. - Constitutional Vitals: Temp Pulse Resp BP Pulse Ox 98.4 F 75 16 152/79 96 05/09/17 15:07 05/09/17 15:07 05/09/17 15:07 05/09/17 15:07 05/09/17 15:07 General appearance: Present: cooperative, A&O X 3, pleasant, no acute distress, answers questions appropriately - Head Head exam: Present: atraumatic, normocephalic - Eye Eye exam: Present: PERRL, conjuntiva pink, sclera anicteric Pupils: Present: PERRL - Neck Neck exam general surgery: Present: supple, trachea midline. Absent: lymphadenopathy - Respiratory Respiratory exam: Present: CTAB. Absent: accessory muscle use, rales, respiratory distress, rhonchi, wheezes - Cardiovascular Cardiovascular exam: Present: RRR, +S1, +S2. Absent: diastolic murmur, gallop, rubs, systolic murmur - GI/Abdominal GI/Abdominal exam: Present: distended, hypoactive bowel sounds, soft, tenderness , no peritoneal signs - Extremities Exam Extremities exam: Present: warm, radial pulses palpable and symetrical. Absent : calf tenderness, cyanotic, pedal edema - Neurological Exam Neurological exam: Present: alert, CN II-XII intact, normal gait, oriented X3, no focal deficits, strengths equal and symetr throughout. Absent: pronater drift, facial droop, speech deficit - Skin Skin exam: Present: dry, intact, pallor, warm Internal Medicine: Result - Labs CBC & Chem 7: 05/08/17 11:01 05/08/17 05:21 - ABG Interpretation ABG results: PT/INR, D-dimer PT 12.6 Seconds (9.4-12.1) H 05/06/17 16:51 - Impressions Impressions Chest/Abdomen X-ray 05/09/17 06:00 IMPRESSION: Persistent small bowel distention within the mid abdomen concerning for a partial small bowel obstruction. No acute cardiopulmonary process identified. D/ / 05/09/2017 08:38:26 Beto Flores MD / otis Interpreting Provider: Beto Flores MD Consult Discharge Plan - Plan Referrals: Rebecca Britt MD [Primary Care Provider] - 05/11/17 1:30 pm
[2017-05-09] MEDS ORDERED: *HR* HYDROmorphone (PF) 1 MG/ML SYRINGE IVP PRN (17:18)
[2017-05-09] MEDS ORDERED: *HR* HYDROmorphone (PF) 1 MG/ML SYRINGE IVP ONE (18:14)
[2017-05-10] MEDS: *HR* Metoprolol 5 MG/5 ML VIAL IVP PRN ×2 (05:01→09:35)
[2017-05-10] MEDS: MetroNIDAZOLE 500 MG/100 ML 500 MG/100 ML BAG IVPB SCH ×4 (05:02→22:54)
[2017-05-10] MEDS: *HR* Heparin 5,000 UNIT/ML VIAL SQ SCH ×2 (05:02→19:19)
[2017-05-10 05:30] LABS: Basophils % 0.3 %; Eosinophils # 0.1 K/mcL (0.0-0.6); Eosinophils % 1.7 %; Hematocrit 41.6 % (37.5-50.1); Hemoglobin 13.7 g/dL (12.9-16.9); Immature Granulocytes % 0.3 % (0-4); Lymphocytes # 1.1 K/mcL (0.6-4.6); Lymphocytes % 14.1 %; Mean Corpuscular HGB Conc 32.9 g/dL (31.6-35.5); Mean Corpuscular Hemoglobin 30.8 pg (28.0-33.3); Mean Corpuscular Volume 93.5 fL (83.0-100.0); Mean Platelet Volume 10.4 fL (9.4-12.4); Monocytes # 0.9 K/mcL (0.0-1.3); Monocytes % 11.4 %; Neutrophils # 5.5 K/mcL (1.6-8.9); Platelet Count 177 K/mcL (140-400); Red Blood Count 4.45 M/mcL (4.19-5.50); Red Cell Distribution Width 12.8 % (11.5-14.5); Segmented Neutrophils % 72.2 %
[2017-05-10 05:41] LABS: BUN/Creatinine Ratio 16 (6-26); Blood Urea Nitrogen 12 mg/dL (8-26); C-Reactive Protein 15 mg/L (Less than 5); Calcium 8.8 mg/dL (8.6-10.8); Carbon Dioxide 23 mEq/L (19-29); Chloride 108 mEq/L (98-109); Glucose 84 mg/dL (70-99); Osmolality,Calculated 287 (280-300); Potassium 3.7 mEq/L (3.5-4.5); Sodium 139 mEq/L (136-145); eGFR For African Americans > 60 (> 60); eGFR For Non-African Americans > 60 (> 60)
[2017-05-10] MEDS: Aspirin Enteric Coated 81 MG Tablet PO SCH (09:16)
[2017-05-10] MEDS: Lisinopril 20 MG TABLET PO SCH (09:17)
[2017-05-10] MEDS: Multivit/Ca/Min/Fe/FA 1 TAB TABLET PO SCH (09:17)
[2017-05-10] MEDS: amLODIPine 5 MG TABLET PO SCH (09:17)
--- NOTE | 2017-05-10 15:02 | Internal Med Progress Note ---
Date of Encounter: 05/10/17 Time of Encounter: 13:00 - Assessment and plan (1) Abdominal pain Current Visit: Yes Status: Acute Assessment and plan: Patient stating he no longer has abdominal pain and states that his abdomen feels less distended and hard. NG tube was placed yesterday and placed to low wall suction as repeat imaging revealed a SBO in mid abdomen. Repeat imaging this am reveals resolution of the obstruction and no evidence of perforation. Will slowly advance his diet and start with clears. Will leave the NG in place while he is in the clears and full liquid levels and will discontinue the NG tube once he graduates from full liquids as his NG tube was quite difficult to place 2/2 prior nasal and throat surgeries. Of note, his abdomen is successfully decompressed- no indication to advance NG tube. On examination, patient's abdomen is distended but soft with normoactive bowel sounds in all 4 quadrants. His abdomen is nontender. He had a small, formed bowel movement earlier today. Will DC suction and start him on clears. He and his are in agreement with the plan. Impressions KUB X-Ray 05/09/17 18:20 IMPRESSION: Side port of the enteric tube at the gastroesophageal junction. Recommend advancement. D/ / Brandon Loco MD / Brandon Loco MD Interpreting Provider: Brandon Loco MD Chest/Abdomen X-ray 05/10/17 06:00 IMPRESSION: 1. No acute pulmonary process. 2. Enteric tube is in position with the side port at the level of the GE junction and tip at the level of the cardia, this should be advanced approximately 7 cm. 3. Interval decompression of the small bowel loops suggesting resolution of obstruction. No evidence of perforation. D/ / 05/10/2017 10:26:04 Fabio Ayala MD / edd Interpreting Provider: Fabio Ayala MD 05/09/[address] revealing mesenteric edema with suspected mesenteric enteritis with a possible SBO. Yesterday, he was made NPO and started on Cipro and Flagyl. He had a sizeable bowel movement yesterday and his abdomen was less distended, softer, and he then denied abdominal pain. NG tube was held at that time and he was observed overnight. Unfortunately, repeat imaging this am revealing continued small bowel distention with suspected SBO to the mid abdomen. NG tube placed today. He continues to deny pain. Unclear causation at this time- he has had shooting pains across his abdomen for a month, but progressively worsened in the 2 days prior to presentation. No leukocytosis or signs of infection. We will check stool for Hemoccult. LDH normal, lactic acid normal. Amylase and lipase unremarkable. He does not have any signs of ischemic bowel at this time, we will monitor closely. Will continue to treat conservatively- repeat AAS in the am- if abnormal, will consider surgery consultation. Possible small bowel follow through testing as well. ITS Impressions Abdomen/Pelvis CT 05/07/17 18:13 IMPRESSION: Fluid distention of multiple small bowel loops throughout the abdomen with increased vascularity and associated small amount of fluid and mesenteric edema. Findings could represent enteritis. Small bowel obstruction cannot be excluded. D/ / Stephanie Newton Cha, MD / Stephanie Newton Cha, MD Interpreting Provider: Stephanie Newton Cha, MD Chest/Abdomen X-ray 05/09/17 06:00 IMPRESSION: Persistent small bowel distention within the mid abdomen concerning for a partial small bowel obstruction. No acute cardiopulmonary process identified. D/ / 05/09/2017 08:38:26 Beto Flores MD / otis Interpreting Provider: Beto Flores MD (2) SBO (small bowel obstruction) Current Visit: Yes Status: Resolved Assessment and plan: Will slowly advance his diet, will leave NG tube in placed until he graduates full liquids (3) Chest pain Current Visit: Yes Status: Ruled-out Assessment and plan: In further discussion with the patient, patient never had overt chest pain. He did have epigastric pain and acute coronary syndrome was ruled out with a negative chest x-ray, negative troponins, and a negative stress test. Ejection fraction 69%. Low suspicion for acute cardiac etiology. Abdominal pathway investigated and patient with suspected mesenteric enteritis and SBO ITS Impressions Chest X-Ray 05/06/17 16:33 IMPRESSION: No evidence of acute cardiopulmonary disease. D/ / Lonnie Mac MD / Lonnie Mac MD Interpreting Provider: Lonnie Mac MD Regadenosen nuclear stress test impression: Pharmacologic stress ECG is negative for ischemia at level heart rate achieved. Gait ejection fraction equals 69%. Perfusion imaging was negative for ischemia or infarct. Qualifiers: Chest pain type: precordial pain Qualified Code(s): R07.2 - Precordial pain (4) Enteritis Current Visit: Yes Status: Suspected (5) Hypertension Current Visit: Yes Status: Chronic Assessment and plan: Uncontrolled upon presentation. His lisinopril was increased but he remained hypertensive even after his pain was controlled. Amlodipine was also added to his regimen and his blood pressure is better controlled, we will continue to trend. Heart rate stable, Lopressor IV as needed Qualifiers: Hypertension type: essential hypertension Qualified Code(s): I10 - Essential (primary) hypertension (6) Hyperlipidemia Current Visit: Yes Status: Chronic Assessment and plan: The patient unremarkable but LDL is above 70, slightly, he is on a statin, continue. Still recommend low-cholesterol diet. Qualifiers: Hyperlipidemia type: unspecified Qualified Code(s): E78.5 - Hyperlipidemia , unspecified (7) DVT prophylaxis Current Visit: Yes Status: Acute Assessment and plan: Subcutaneous heparin - Subjective Interval history: Patient seen and examined. On examination, patient alert and oriented 3 and sitting upright on the side of his bed. He denies abdominal pain and states that his abdomen feels soft and less distended. He states he had a bowel movement. - Constitutional Vitals: Temp Pulse Resp BP Pulse Ox 98.3 F 68 15 144/84 95 05/10/17 11:53 05/10/17 11:53 05/10/17 11:53 05/10/17 11:53 05/10/17 11:53 General appearance: Present: cooperative, A&O X 3, pleasant, no acute distress, answers questions appropriately - Head Head exam: Present: atraumatic, normocephalic - Eye Eye exam: Present: PERRL, conjuntiva pink, sclera anicteric Pupils: Present: PERRL - Neck Neck exam general surgery: Present: supple, trachea midline. Absent: lymphadenopathy - Respiratory Respiratory exam: Present: CTAB. Absent: accessory muscle use, rales, respiratory distress, rhonchi, wheezes - Cardiovascular Cardiovascular exam: Present: RRR, +S1, +S2. Absent: diastolic murmur, gallop, rubs, systolic murmur - GI/Abdominal GI/Abdominal exam: Present: distended, normal bowel sounds, soft, no peritoneal signs. Absent: tenderness - Extremities Exam Extremities exam: Present: warm, radial pulses palpable and symetrical. Absent : calf tenderness, cyanotic, pedal edema - Neurological Exam Neurological exam: Present: alert, CN II-XII intact, normal gait, oriented X3, no focal deficits, strengths equal and symetr throughout. Absent: pronater drift, facial droop, speech deficit - Skin Skin exam: Present: dry, intact, pallor, warm Internal Medicine: Result - Labs CBC & Chem 7: 05/10/17 05:20 05/10/17 05:20 - ABG Interpretation ABG results: PT/INR, D-dimer PT 12.6 Seconds (9.4-12.1) H 05/06/17 16:51 Consult Discharge Plan - Plan Referrals: Rebecca Britt MD [Primary Care Provider] - 05/11/17 1:30 pm
[2017-05-10] MEDS: 0.9 % Sodium Chloride 1,000 ML IVC SCH (17:48)
[2017-05-11] MEDS: 0.9 % Sodium Chloride 1,000 ML IVC SCH (01:49)
[2017-05-11] MEDS: *HR* Metoprolol 5 MG/5 ML VIAL IVP PRN ×2 (01:50→07:57)
[2017-05-11] MEDS: MetroNIDAZOLE 500 MG/100 ML 500 MG/100 ML BAG IVPB SCH ×2 (05:06→11:53)
[2017-05-11] MEDS: *HR* Heparin 5,000 UNIT/ML VIAL SQ SCH (07:39)
[2017-05-11] MEDS: Aspirin Enteric Coated 81 MG Tablet PO SCH (07:57)
[2017-05-11] MEDS: Lisinopril 20 MG TABLET PO SCH (07:57)
[2017-05-11] MEDS: amLODIPine 5 MG TABLET PO SCH (07:57)
[2017-05-11] MEDS: Multivit/Ca/Min/Fe/FA 1 TAB TABLET PO SCH (07:57)
[2017-05-11 11:25] VITALS: BP 191/102
--- NOTE | 2017-05-11 15:11 | Discharge Summary ---
<Justino Russo - Last Filed: 05/11/17 15:07> Date of Encounter: 05/11/17 Time of Encounter: 14:30 - Discharge Diagnosis (1) SBO (small bowel obstruction) Priority: Primary Status: Resolved Comments: Patient reports tolerating regular diet, had bowel movement this morning, and states he no longer has abdominal pain. NG tube was removed this morning. Repeat imaging yesterday reveals resolution of the obstruction and no evidence of perforation. On examination, patient's abdomen is distended but soft with normoactive bowel sounds in all 4 quadrants. His abdomen is nontender. No leukocytosis or signs of infection. No need for continue antibiotics. Will discharge to home with outpatient follow-up. He and his are in agreement with the plan. (2) Hypertension Priority: Primary Status: Chronic Comments: Uncontrolled upon presentation. His lisinopril was increased but he remained hypertensive even after his pain was controlled. Amlodipine was also added to his regimen and his blood pressure is better controlled. Heart rate stable, Lopressor IV as needed Qualifiers: Hypertension type: essential hypertension Qualified Code(s): I10 - Essential (primary) hypertension (3) Hyperlipidemia Priority: Secondary Status: Chronic Comments: The patient unremarkable but LDL is above 70, slightly, he is on a statin, continue. Still recommend low-cholesterol diet. Qualifiers: Hyperlipidemia type: unspecified Qualified Code(s): E78.5 - Hyperlipidemia , unspecified (4) Chest pain Priority: Secondary Status: Resolved Comments: acute coronary syndrome was ruled out with a negative chest x-ray, negative troponins, and a negative stress test. Ejection fraction 69%. Low suspicion for acute cardiac etiology. Likely referred pain from acute SBO Qualifiers: Chest pain type: precordial pain Qualified Code(s): R07.2 - Precordial pain (5) DVT prophylaxis Priority: Primary Status: Acute Comments: Heparin Patient seen and examined, and plan discussed with and agreed upon with Dr. Redman - Discharge Medications Prescriptions: amLODIPine [Norvasc] 5 mg PO DAILY #30 tablet Home Medications: Aspirin Enteric Coated [Aspirin EC] 81 mg PO DAILY 05/06/17 [History] Lisinopril [Zestril] 20 mg PO DAILY 05/06/17 [History] Multivitamin [Multi-Day Vitamins] 1 each PO DAILY 05/06/17 [History] Pravastatin Sodium [Pravachol] 20 mg PO HS 05/06/17 [History] Acetaminophen [Tylenol] 650 mg PO Q6HR PRN tab 05/11/17 [Rx] Docusate [Colace] 100 mg PO BID PRN 05/11/17 [Rx] Multivit/Ca/Min/Fe/FA [Thera M Plus] 1 tab PO DAILY tab 05/11/17 [Rx] amLODIPine [Norvasc] 5 mg PO DAILY #30 tablet 05/11/17 [Rx] Allergies/Adverse Reactions: Allergies No Known Allergies Allergy (Verified 05/06/17 16:40) Date of admission: 05/10/17 09:50 Primary care physician: Rebecca Britt MD Discharging clinician: Luke Anguiano date of discharge: 05/11/17 - Patient Status Disposition: Home, Self-Care Condition: Good Functional capacity at discharge: independent ambulation Overall status at discharge: patient is back to baseline - Discharge Instructions Instructions: Amlodipine (By mouth), Angina (DC), Heart Healthy Diet (DC), Hypertension (DC) Follow Up With: Rebecca Britt MD [Primary Care Provider] - 05/14/17 1:30 pm Additional Instructions: Start taking amlodipine (Norvasc) 5 mg daily for hypertension. Follow up with PCP in 1-2 weeks. Follow-up appointments: If there is not an appointment listed below, please call your physician and schedule a follow-up appointment. If you have congestive heart failure and your symptoms return, make an appointment with your physician. Medication List: Carry an up to date list of medications you are taking at all time. We have given you an updated medication list including any new medications that you have been prescribed. Please provide that list to your primary provider Symptoms: If your condition changes or you experience any of the following symptoms, notify your physician immediately: Unusual or worsening pain, fever, persistent nausea and vomiting, bleeding, increase in swelling (especially in your legs), sudden weight gain, extreme dizziness, chest pain, increased drainage or redness from a wound or incision. Go to the emergency department if you experience a problem with breathing. Weights: If you have a history of swelling or shortness of breath, weigh yourself daily and notify your physician if you have a weight gain of two or more pounds in one day or 5 or more pounds in a week. If you experience any of the warning signs for stroke: Sudden numbness or weakness of the face, arm or leg; especially on one side of the body, sudden confusion, trouble speaking or understanding, sudden trouble seeing in one or both eyes, sudden trouble walking, dizziness, loss of balance or coordination, sudden sever headache with no cause; Call 911 or go to the emergency room. Stroke is a medical emergency. Some risk factors for stroke: Age, cigarette smoking, diabetes, excessive alcohol consumption, family history , high blood pressure, overweight, physical inactivity, prior stroke, heart attack, diagnosis of carotid artery stenosis or other artery disease. If you smoke, STOP: Smoking or tobacco use significantly increases your risk of heart and lung disease. Your chance of disease greatly increases if you continue to smoke. For more information, call the [employer] tobacco quit line for smoking cessation QUIT-NOW ( ) - Diet and Activity Diet: low fat, low cholesterol Hospital course: Mr. Stark is a 72 year old male who presented complaining of acute onset of epigastric and substernal chest pain with sudden onset while walking at work. He sat down at his desk and the pain persisted for several minutes. It was associated with some shortness of breath, diaphoresis, and felt like "an elephant sitting on my chest". He therefore came to the ER where he was seen and evaluated. He received an aspirin and some sublingual nitroglycerin with relief of symptoms. He had atypical cramping pain in his left abdomen radiating to his chest. He denied any heartburn, nausea, vomiting, diarrhea, constipation , or change in bowel habits. He is an active individual and has never had chest pain before. Cardiac risk factors include hypertension, hyperlipidemia, obesity, and family history. Acute coronary syndrome was ruled out with a negative chest x-ray, negative troponins, and a negative stress test. Ejection fraction 69%. Low suspicion for acute cardiac etiology. Abdominal CT revealing mesenteric edema with suspected mesenteric enteritis with a possible SBO. He was made NPO and started on Cipro and Flagyl. LDH was normal and lactic acid normal. Amylase and lipase were unremarkable. He did not have any signs of ischemic bowel at this time. Conservative management was continued for 4 days and NG tube was inserted and put on low intermittent suction. He was slowly advanced clear liquid and full liquid diet. By hospital day 5 patient report tolerating regular diet, had two bowel movements, and no longer had abdominal pain. NG tube was removed. Repeat imaging revealed resolution of the obstruction and no evidence of perforation. On examination, patient's abdomen is distended but soft with normoactive bowel sounds in all 4 quadrants. His abdomen is nontender. No leukocytosis or signs of infection. We discontinued antibiotics. He was discharged to home and recommend outpatient follow-up. He and his are in agreement with the plan. - Time Spent with Patient Total time spent providing and/or coordinating discharge services: - Constitutional Vitals: Temp Pulse Resp BP Pulse Ox 98.4 F 82 17 191/102 94 05/11/17 11:24 05/11/17 11:24 05/11/17 11:24 05/11/17 11:24 05/11/17 11:24 General appearance: Present: cooperative, A&O X 3, pleasant, no acute distress, obese, answers questions appropriately - Head Head exam: Present: atraumatic, normocephalic - Eye Eye exam: Present: PERRL, conjuntiva pink, sclera anicteric Pupils: Present: PERRL - ENT ENT exam: Present: mucous membranes moist, normal oropharynx Additional comments: NG-tube removed - Neck Neck exam general surgery: Present: supple, trachea midline. Absent: lymphadenopathy - Respiratory Respiratory exam: Present: CTAB. Absent: accessory muscle use, rales, rhonchi, wheezes - Cardiovascular Cardiovascular exam: Present: RRR, +S1, +S2. Absent: diastolic murmur, gallop, rubs, systolic murmur - GI/Abdominal GI/Abdominal exam: Present: normal bowel sounds, soft, no peritoneal signs. Absent: distended, firm, guarding, hernia, rigid, tenderness - Extremities Exam Extremities exam: Present: warm, radial pulses palpable and symetrical. Absent : calf tenderness, cyanotic, pedal edema - Neurological Exam Neurological exam: Present: CN II-XII intact, oriented X3, no focal deficits. Absent: pronater drift, facial droop, speech deficit - Psychiatric Psychiatric exam: Present: normal affect, normal mood - Skin Skin exam: Present: dry, intact, warm. Absent: rash <Юлия,Luke P - Last Filed: 05/11/17 20:14> Date of Encounter: 05/11/17 Date of admission: 05/10/17 09:50 Primary care physician: Rebecca Britt MD Hospital course: Mr. Stark is a 72 year old male - Time Spent with Patient Total time spent providing and/or coordinating discharge services: - Constitutional Vitals: Temp Pulse Resp BP Pulse Ox 98.4 F 82 17 191/102 94 05/11/17 11:24 05/11/17 11:24 05/11/17 11:24 05/11/17 11:24 05/11/17 11:24 - Attending Attestation I examined this patient and my medical decision-making was reviewed with the Resident Physician. I agree with the documented findings, disposition and treatment plan as described except to the extent set forth below.
== END 2017-05-11 16:15 | disposition home or self-care (01) | DRG 390 ==
LOC: EMEROO 16:20 → 3BNU 16:20
PROVIDERS: ADMIT Nurse Practitioner Family; ATTEND Nurse Practitioner Family

== ENCOUNTER 2019-06-01 17:01 | Observation (INO) ==
[2019-06-01 17:55] LABS: Hematocrit 45.6 % (37.5-50.1); Hemoglobin 15.6 g/dL (12.9-16.9); Mean Corpuscular HGB Conc 34.2 g/dL (31.6-35.5); Mean Corpuscular Hemoglobin 31.6 pg (28.0-33.3); Mean Corpuscular Volume 92.5 fL (83.0-100.0); Platelet Count 194 K/mcL (140-400); Red Blood Count 4.93 M/mcL (4.19-5.50); Red Cell Distribution Width 12.7 % (11.5-14.5); White Blood Count 8.7 K/mcL (4.3-11.1)
[2019-06-01 18:07] LABS: Prothrombin Time 11.8 Seconds (9.4-12.1)
[2019-06-01 18:10] LABS: Activated Partial Thrombo Time 33.5 Seconds (26.0-36.0)
[2019-06-01 18:16] LABS: BUN/Creatinine Ratio 16 (6-26); Blood Urea Nitrogen 14 mg/dL (8-23); Calcium 9.4 mg/dL (8.6-10.3); Carbon Dioxide 26 mEq/L (23-29); Chloride 102 mEq/L (98-107); Glucose 122 mg/dL (70-105); Osmolality,Calculated 288 (280-300); Potassium 3.7 mEq/L (3.5-5.1); Sodium 138 mEq/L (136-145); Troponin I < 0.03 ng/mL (< 0.04); eGFR For African Americans > 60 (> 60); eGFR For Non-African Americans > 60 (> 60)
[2019-06-01 19:19] LABS: Bilirubin,Urine Negative (Negative); Blood,Urine Negative (Negative); Clarity,Urine Clear (Clear); Color,Urine Yellow (Yellow); Glucose,Urine (UA) Normal (Normal); Ketones,Urine Negative (Negative); Leukocyte Esterase,Urine Negative (Negative); Nitrite,Urine Negative (Negative); PH,Urine 6.5 pH Units (5.0-8.0); Protein,Urine Negative (Neg-Trace); Urobilinogen,Urine Normal (Normal)
[2019-06-01] MEDS ORDERED: Aspirin 81 MG TAB.CHEW PO STA (19:25)
[2019-06-01] MEDS ORDERED: Isovue-370 500 ML BOTTLE IVP ONE (20:40)
[2019-06-01] MEDS ORDERED: Acetaminophen 325 MG TABLET PO PRN (20:42)
[2019-06-01] MEDS ORDERED: Ondansetron 4 MG/2 ML VIAL IVP PRN (20:42)
[2019-06-01] MEDS ORDERED: Ringers Solution, Lactated 1,000 ML IVC SCH (20:45)
[2019-06-01] MEDS ORDERED: Perflutren Lipid Microsphere 1.3 ML in 0.9 % Sodium Chloride 8.7 ML IVP ONE (22:16)
[2019-06-02] MEDS: *HR* Heparin 5,000 UNIT/ML VIAL SQ SCH ×2 (05:34→17:08)
[2019-06-02 06:29] LABS: Chol/HDL Ratio 5.3 (0-4.9)
[2019-06-02 06:40] LABS: Thyroid Stimulating Hormone 1.199 mcIU/mL (0.340-5.600)
[2019-06-02] MEDS ORDERED: Lisinopril 20 MG TABLET PO SCH (09:00)
[2019-06-02] MEDS ORDERED: hydroCHLOROthiazide 25 MG TABLET PO SCH (09:00)
[2019-06-02] MEDS ORDERED: Aspirin Enteric Coated 81 MG Tablet PO SCH (09:00)
[2019-06-02 10:33] LABS: Estimated Average Glucose 137 mg/dl
[2019-06-02 19:17] VITALS: BP 170/80
== END 2019-06-02 21:21 | disposition home or self-care (01) ==
LOC: EMEROOARM 17:01 → 3BNU 17:01 → SUATTDRO 20:43 → 3BNU 21:54
PROVIDERS: ADMIT Internal Medicine; ATTEND Internal Medicine